=== PATIENT | male | born 1975 ===

== ENCOUNTER 2023-09-19 13:44 | Outpatient (CLI) | payer OTHER ==
[~2023-09-19 13:44] MED LIST: Magnevist 469MG/ML 20 ML VIAL ONE
== END 2023-09-19 13:45 | disposition home or self-care (01) ==
LOC: CSHMRI 13:44
PROVIDERS: ATTEND Neurological Surgery
DX: G43.909 Migraine, unspecified, not intractable, without status migrainosus (principal); G93.9 Disorder of brain, unspecified
CPT/HCPCS: 70553